=== PATIENT | male | born 2000 | race Caucasian/White ===

== ENCOUNTER 2019-08-30 11:54 | Emergency (ER) | payer OTHER, SELFPAY ==
--- NOTE | ~2019-08-30 | XR_ITS ---
EXAMINATION: XR chest 1V portable INDICATION: Transient alteration of awareness TECHNIQUE: Portable AP chest at 1236 hours COMPARISON: 12/29/2017 FINDINGS: There are minimal airspace opacities of the right lung base. There is no pleural effusion o r pneumothorax. The cardiomediastinal silhouette is normal. The visualized bones and soft tissues are unremarkable. IMPRESSION: 1. Minimal right basilar airspace opacity, consistent with atelectasis versus pneumonia Reviewed, dictated and finalized at location A. IMPRESSION: 1. Minimal right basilar airspace opacity, consistent with atelectasis versus p neumonia
--- NOTE | ~2019-08-30 | CT_ITS ---
EXAMINATION: CT brain wo con INDICATION: Transient alteration of awareness COMPARISON: 12/29/2017 TECHNIQUE: Standard unenhanced head CT. The dose-length product (DLP) was 605.33 mGy-cm. The mA was a djusted according to patient size. Iterative reconstruction technique was employed. FINDINGS: There is no intracranial hemorrhage, acute infarction, or abnormal mass lesion. The ventric les are normal. There is no abnormal mass effect or midline shift. The zelaya-white matter differentiat ion is normal. The basal cisterns are patent. The orbits are normal. There is a polyp or mucous reten tion cyst of the left maxillary sinus. IMPRESSION: 1. No acute intracranial abnormality. Reviewed, dictated and finalized at location A.
--- NOTE | 2019-08-30 11:57 | ECG_ITS ---
Measurements Intervals [place] Rate: 151 P: -34 WA: 75 QRS: 75 QRSD: 106 T: 31 QT: 290 QTc: 461 Interpretive Statements SINUS TACHYCARDIA BORDERLINE ST-T WAVE ABNORMALITY- INFERIOR LEADS BASELINE ARTIFACT- II, III, V1 ABNORMAL ECG Electronically Signed On 08-30-2019 13:02:32 CDT by Saulo Barajas D.O.
[2019-08-30 11:59] VITALS: BP 177/107; PULSE 147; RESP 46; TEMP 37.6; O2SAT 97
[2019-08-30 12:09] VITALS: PULSE 147; O2SAT 96
[2019-08-30 12:11] VITALS: O2SAT 10
[2019-08-30 12:13] LABS: Basophils Absolute Auto 0.1 K/mm3 (0.0-0.1); Basophils Percent Auto 0.4 % (0.2-1.2); Eosinophils Absolute Auto 0.2 K/mm3 (0-0.3); Eosinophils Percent Auto 1.2 % (0-4.4); Hemoglobin 17.9 g/dL (14.0-18.0); Immature Granulocyte Absolute 0.03 K/mm3 (0.00-0.031); Immature Granulocyte Percent A 0.2 % (0-0.5); Lymphocytes Absolute Auto 6.35 K/mm3 (0.9-3.2); Lymphocytes Percent Auto 47.4 % (18.3-44.2); Mean Corpuscular HGB Conc 30.9 g/dl (32-36); Mean Corpuscular Hemoglobin 31.7 pg (26-34); Mean Corpuscular Volume 102.8 fl (80-100); Mean Platelet Volume 10.6 fl (7.4-10.4); Monocytes Absolute Auto 1.3 K/mm3 (0.1-0.6); Monocytes Percent Auto 9.7 % (2.6-8.5); Neutrophils Absolute Auto 5.5 K/mm3 (1.3-6.7); Neutrophils Percent Auto 41.1 % (45.5-73.1); Platelet Count Result 368 k/mm3 (150-375); Red Blood Count 5.64 M/mm3 (4.6-6.20); Red Cell Distribution Width 12.4 % (11.5-14.5); White Blood Count 13.4 K/mm3 (4.5-10.0)
[2019-08-30] MEDS: LACTATED RINGERS 1,000 ML 999 ML IV CONT ×2 (12:17→14:27)
[2019-08-30] MEDS: LORAZEPAM INJ 2 MG/ML VIAL IV PUSH (12:20)
--- NOTE | 2019-08-30 12:20 | ED.SEIZURE ---
HPI - Seizure General Chief Complaint: Seizure Stated Complaint: SEIZURE Time Seen by Provider: 08/30/19 11:57 Source: family and EMS Mode of arrival: EMS Limitations: clinical condition (postictal) History of Present Illness HPI Narrative: This patient is a 19 year old male with history of epilepsy who presents for evaluation of seizure. His mother states patient woke up this morning not acting like himself. They were out eating lunch today when he had a seizure. EMS states patient was postictal on their arrival and he had a 30 second seizure in route. They administered 4 mg versed IM in route. Patient also had 30 second seizure on arrival. His mother states it is normal for him to have 4 seizures in a row and he has a long postictal period. He takes Depakote 500 mg TID and she states he missed one dose yesterday morning but he took his afternoon and evening dose yesterday and he has taken his morning dose today. His neurologist is Dr. Molina at [facility]. complaint: seizure Seizure History: Yes Related Data Home Medications Medication Instructions Recorded Confirmed buspirone mg 08/30/19 divalproex [Depakote] PO TID 08/30/19 Allergies Allergy/AdvReac Type Severity Reaction Status Date / Time No Known Allergies Allergy Unverified 11/08/13 11:37 Review of Systems Constitutional: Constitutional: Denies chills and Denies fever(s) Eyes: Eyes: Denies change in vision ENT: Denies dizziness and Denies sore throat Cardiovascular: Cardiovascular: Denies chest pain and Reports rapid heart rate Respiratory: Respiratory: Denies chest congestion, Denies cough, Denies dyspnea and Denies wheezing Gastrointestinal: Gastrointestinal: Denies abdominal pain, Denies constipation, Denies diarrhea, Reports nausea and Denies vomiting Musculoskeletal: Musculoskeletal: Denies back pain Neurologic: Denies headache(s) and Denies focal weakness PMF Past Medical History Medical History (Updated 08/30/19 @ 18:37 by Kalpana Pink MD) Asthma Epileptic seizure Social History Social History (Updated 08/30/19 @ 18:37 by Kalpana Pink MD) Tobacco type: e-cigarettes/vaping Substance use type: marijuana Exam Const: General: diaphoretic and ill appearing Orientation/consciousness: confusion Other: Patient is postictal , unresponsive , tachypne HENMT: Head: normocephalic and atraumatic Ears: external ears normal and TM's normal bilaterally Face and sinus: normal facial exam, sinuses nontender and face symmetric Mouth: Yes Normal oral and palatal mucosa present, Yes lip normal and Yes other (small contusion to tongue) Eyes: Pupils: Equal, round and reactive pupils present (when he woke up ) EOM: EOMs intact bilaterally Neck: Neck: normal visual inspection Resp: Effort & Inspection: tachypneic Auscultation: clear to auscultation bilaterally Other: snoring Cardio: Rate: tachycardic Rhythm: regular rhythm Heart sounds: no murmurs GI: Inspection: non-distended Auscultation: normal bowel sounds Skin: Other: face and arms hot to touch, sweating Neuro: Other: patient initially postical ; once he woke up ORiented x 3 with steady gait , moving all extremities, no focal deficits Extrem: General: no pedal edema Course Reevaluation(s) Reevaluation #1: Patient is now awake and oriented to person, age, place. He has no complaints at this time. He states to prior to having a seizure he was nauseated and he felt like his heart was racing. I have discussed with his mother that we will continue to monitor and hydrate. He is due for dose of Depakote. Date: 08/30/19 Time: 14:18 Consultations Consultation #1: I Discussed Case with Dr. Croft with [facility] neurology. He states if patient is back to baseline he can be discharge with clonazepman 0.5 mg BID for 3 days. PAtient should call clinic on Sunday. PAtient found to have lactic acidosis due to seizures but it cleared with hydration. His leukocytosi
[2019-08-30 12:42] LABS: Valproic Acid 80.3 ug/mL (50-120)
[2019-08-30 12:45] LABS: Albumin Level 5.9 g/dL (3.5-5.1); Alkaline Phosphatase 72 U/L (38-126); Aspartate Amino Transferase 37 U/L (17-59); Bilirubin,Total 1.3 mg/dL (0.2-1.3); Blood Urea Nitrogen 17 mg/dL (9-20); Calcium 10.8 mg/dL (8.4-10.2); Carbon Dioxide < 5 mmol/L (22-30); Chloride 105 mmol/L (98-107); Estimated CRCL calculation 93 ml/min; Estimated Glomerular Filt Rate > 60; Glucose 181 mg/dL (75-110); Magnesium 2.7 mg/dL (1.6-2.3); Sodium 150 mmol/L (137-145)
[2019-08-30 12:46] LABS: INR 1.4; Prothrombin Time 16.3 Seconds (11.1-14.7)
[2019-08-30 12:47] LABS: Partial Thromboplastin Time 25.6 SECONDS (22.3-36.8)
--- NOTE | 2019-08-30 12:55 | PC.NURSE ---
pt pulled out nasal trumpet. maintaining 100% O2 sat while on non rebreather mask 10 lpm
[2019-08-30 12:57] LABS: Lactic Acid Reflex > 24.0 mmol/L (0.7-2.1)
[2019-08-30 13:04] LABS: Glucose Point of Care 139 (65-105)
[2019-08-30 13:21] LABS: Alanine Aminotransferase 33 U/L (4-50)
[2019-08-30 14:14] LABS: Creatine Kinase 242 U/L (55-170)
[2019-08-30 14:50] VITALS: BP 117/67; PULSE 95; RESP 21; TEMP 36.6; O2SAT 100; O2SAT 99
[2019-08-30 15:11] LABS: Reflex Lactic Acid Yes or No Add Lactic
--- NOTE | 2019-08-30 15:37 | PC.NURSE ---
Pt now awake. [place] to self and place. Does not remember seizure event. Pt and mother reminded that urine specimen needed.
[2019-08-30 16:12] LABS: Lactic Acid 0.9 mmol/L (0.7-2.1)
[2019-08-30 16:18] LABS: Amphetamine Screen Urine Negative (Negative); Barbiturate Screen Urine Negative (Negative); Benzodiazepines Screen Urine Positive (Negative); Cannabinoid Screen Urine Positive (Negative); Cocaine Screen Urine Negative (Negative); Methadone Screen Urine Negative (Negative); Opiate Screen Urine Negative (Negative); Phencyclidine Screen Urine Negative (Negative)
[2019-08-30 16:42] VITALS: BP 121/87; PULSE 93; RESP 16; O2SAT 98
== END 2019-08-30 16:45 | disposition home or self-care (01) ==
PROVIDERS: Emergency Provider General Practice; PCP Pediatrics
DX: G40.909 Epilepsy, unspecified, not intractable, without status epilepticus (principal); J45.909 Unspecified asthma, uncomplicated; F17.290 Nicotine dependence, other tobacco product, uncomplicated; R00.0 Tachycardia, unspecified; R94.31 Abnormal electrocardiogram [ECG] [EKG]
CPT/HCPCS: 36415; 70450; 71045; 80053; 80164; 80307; 82550; 83605; 83735; 85025; 85610; 85730; 93005; 96361; 96374; 99284; A9270; J2060; J7120